=== PATIENT | female | born 2000 ===

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

== ENCOUNTER → 2025-09-11 | Outpatient (CLI) | payer BC ==
[2025-09-11 13:28] LABS: Source, Urine Clean Catch
[2025-09-11 14:38] LABS: Red Blood Cells, Urine 0-2 /hpf (0-2)
== END ==
LOC: LAB 13:25 → LAB SHORT 13:25
PROVIDERS: Advanced Practice Midwife
DX: Z34.01 Encounter for supervision of normal first pregnancy, first trimester (principal)
CPT/HCPCS: 81015; 87086